=== PATIENT | female | born 1935 | race African-American/Black ===

== ENCOUNTER 2020-07-02 13:54 | Inpatient (IN) ==
[2020-07-02] MEDS ORDERED: ENOXAPARIN 100 MG/ML SYRINGE SUBCUT STA (14:34)
[2020-07-02] MEDS ORDERED: ASPIRIN 325 MG TABLET PO STA (14:34)
[2020-07-02 14:42] LABS: Hematocrit 23.2 VOL% (35.7-47.0); Hemoglobin 7.4 GM/DL (12.0-16.0); Immature Granulocytes % 1.1 %; Immature Granulocytes Absolute 0.25 #; Lymphocytes # 1.7 10*3/uL (1.4-4.0); Lymphocytes % 7.3 % (21.3-54.2); Mean Corpuscular HGB Conc 31.9 GM/DL (32-36); Mean Corpuscular Volume 91.7 FL (87-102); Mean Platelet Volume 10.6 FL (9.6-12.0); Monocytes % 6.2 % (1.7-12.7); NRBC # 0.16 10*3/uL; Neutrophils % 85.4 % (38.7-73.9); Platelet Count 255 T/CUMM (130-400); Red Blood Count 2.53 MC/CUMM (3.8-5.5); Red Cell Distribution Width 16.5 % (9.3-17.3); White Blood Count 22.8 T/CUMM (4-12)
[2020-07-02] MEDS: NITROGLYCERIN SL 0.4 MG TABLET SL PRN (14:51)
[2020-07-02 14:55] LABS: Alanine Aminotransferase 18 U/L (13-56); Albumin 3.7 G/DL (3.4-5.0); Alkaline Phosphatase 94 U/L (45-117); Aspartate Amino Transferase 40 U/L (0-37); Bilirubin,Total < 0.39 MG/DL (0.2-1.0); Blood Urea Nitrogen 118 MG/DL (7-18); Calcium 9.1 MG/DL (8.5-10.1); Carbon Dioxide 24 MMOL/L (21-32); Estimated Glom Filtration Rate 25 ML/MIN; Glucose 112 MG/DL (74-106); Osmolality,Calculated 330.4 MOS/KG (273-304); Potassium 3.8 MMOL/L (3.5-5.1); Sodium 147 MMOL/L (136-145); Total Protein 7.3 G/DL (6.4-8.2)
[2020-07-02 15:03] LABS: Hypochromasia 1+; Lymphocytes 13 % (20-55); Microcytosis 1+; Segmented Neutrophils 82 % (50-85); Total Cells Counted 100
[2020-07-02 15:04] LABS: Platelet Estimate Adequate
[2020-07-02] MEDS ORDERED: SODIUM CHLORIDE 0.9% 1,000 ML IV STA (15:14)
[2020-07-02] MEDS ORDERED: SODIUM CHLORIDE 0.9% 1,000 ML IV PRN (15:15)
[2020-07-02] MEDS ORDERED: DEXTROSE 50% 25 GM/50 ML VIAL IV PRN (15:59)
[2020-07-02] MEDS ORDERED: GLUCAGON 1 MG VIAL IM PRN (15:59)
[2020-07-02] MEDS ORDERED: ONDANSETRON 4 MG/2 ML VIAL IV PRN (15:59)
[2020-07-02 16:37] LABS: Bacteria,Urine Many /HPF (Few); Bilirubin,Urine Negative (Negative); Blood, Urine Negative (Negative); Glucose,Urine (UA) Negative (Negative); Hyaline Casts,Urine 14 /LPF (0-3); Ketones,Urine Negative (Negative); Mucus,Urine Occasional /LPF (Occasional); Nitrite,Urine Negative (Negative); Protein,Urine Negative; Squamous Epithelial Cell,Urine Occasional /HPF (0-10); Urine Appearance Slightly Hazy (Clear); Urine Color Yellow (Yellow); Urine Specific Gravity 1.014 (1.001-1.035); Urine Urobilinogen < 2.0 EU/DL (0.2-1.0)
[2020-07-02 17:52] LABS: Hematocrit 21.1 VOL% (35.7-47.0); Hemoglobin 6.7 GM/DL (12.0-16.0)
[2020-07-02] MEDS: cefTRIAXone 1,000 MG in SODIUM CHLORIDE 0.9% 100 ML IV SCH (17:57)
[2020-07-02] MEDS: PANTOPRAZOLE 40 MG TABLET PO SCH (17:57)
[2020-07-02] MEDS: SODIUM CHLORIDE 0.9% 1,000 ML IV SCH (17:58)
[2020-07-02] MEDS: LATANOPROST 0.005% OPH SOLN 2.5 ML BOTTLE BOTH EYES SCH (20:55)
[2020-07-02] MEDS: NORTRIPTYLINE 25 MG CAPSULE PO SCH (20:55)
[2020-07-02] MEDS: GABAPENTIN 100 MG CAPSULE PO SCH (20:55)
[2020-07-02] MEDS: DONEPEZIL 10 MG TABLET PO SCH (20:55)
[2020-07-02 22:10] LABS: Hemoglobin 6.3 GM/DL (12.0-16.0)
[2020-07-03] MEDS: SODIUM CHLORIDE 0.9% 1,000 ML IV SCH ×2 (06:53→08:43)
[2020-07-03] MEDS: SERTRALINE 50 MG TABLET PO SCH (08:44)
[2020-07-03] MEDS: GABAPENTIN 100 MG CAPSULE PO SCH ×3 (08:45→21:47)
[2020-07-03] MEDS: PANTOPRAZOLE 40 MG TABLET PO SCH (08:45)
[2020-07-03 10:14] LABS: Basophils % 0.1 % (0.0-0.8); Hematocrit 28.8 VOL% (35.7-47.0); Immature Granulocytes % 0.8 %; Immature Granulocytes Absolute 0.12 #; Lymphocytes # 1.6 10*3/uL (1.4-4.0); Lymphocytes % 11.4 % (21.3-54.2); Mean Corpuscular HGB Conc 33.7 GM/DL (32-36); Mean Corpuscular Volume 87.3 FL (87-102); Mean Platelet Volume 10.2 FL (9.6-12.0); Monocytes % 8.8 % (1.7-12.7); NRBC # 0.25 10*3/uL; Neutrophils % 78.9 % (38.7-73.9); Red Cell Distribution Width 15.7 % (9.3-17.3)
[2020-07-03 10:15] LABS: White Blood Count 14.2 T/CUMM (4-12)
[2020-07-03 10:16] LABS: Hemoglobin 9.7 GM/DL (12.0-16.0); Platelet Count 203 T/CUMM (130-400)
[2020-07-03 10:20] LABS: INR 1.1; PT Patient Result 12.5 SECS (9.8-11.9)
[2020-07-03 10:34] LABS: Albumin 3.2 G/DL (3.4-5.0); Bilirubin,Total 0.4 MG/DL (0.2-1.0); Calcium 8.6 MG/DL (8.5-10.1); Osmolality,Calculated 329.6 MOS/KG (273-304); Potassium 3.3 MMOL/L (3.5-5.1); Total Protein 6.9 G/DL (6.4-8.2)
[2020-07-03] MEDS: PANTOPRAZOLE 40 MG VIAL IV SCH ×2 (11:28→21:47)
[2020-07-03] MEDS: POTASSIUM CHLORIDE RIDER 10 MEQ in PREMIX 1 EACH IV SCH ×4 (11:28→15:09)
[2020-07-03] MEDS: MORPHINE 4 MG/1 ML VIAL IV PRN (11:30)
[2020-07-03 14:58] LABS: CKMB % 1.6 %
[2020-07-03 15:03] LABS: Troponin I 0.084 NG/ML (0.00-0.045)
[2020-07-03] MEDS: METOPROLOL TARTRATE 25 MG TABLET PO SCH ×2 (15:12→21:47)
[2020-07-03] MEDS: ISOSORBIDE MONONITRATE 30 MG TABLET PO SCH (15:17)
[2020-07-03] MEDS: DEXTROSE 5% 1,000 ML IV SCH (15:19)
[2020-07-03] MEDS: cefTRIAXone 1,000 MG in SODIUM CHLORIDE 0.9% 100 ML IV SCH (17:45)
[2020-07-03] MEDS: DONEPEZIL 10 MG TABLET PO SCH (21:47)
[2020-07-03] MEDS: NORTRIPTYLINE 25 MG CAPSULE PO SCH (21:47)
[2020-07-03] MEDS: LATANOPROST 0.005% OPH SOLN 2.5 ML BOTTLE BOTH EYES SCH (23:27)
[2020-07-04 05:22] LABS: Basophils % 0.2 % (0.0-0.8); Eosinophils % 0.2 % (0.00-10.9); Hematocrit 25.6 VOL% (35.7-47.0); Hemoglobin 8.2 GM/DL (12.0-16.0); Immature Granulocytes % 0.4 %; Immature Granulocytes Absolute 0.04 #; Lymphocytes # 1.8 10*3/uL (1.4-4.0); Lymphocytes % 19.1 % (21.3-54.2); Mean Corpuscular Volume 91.4 FL (87-102); Mean Platelet Volume 10.2 FL (9.6-12.0); Monocytes % 10.2 % (1.7-12.7); NRBC # 0.19 10*3/uL; Neutrophils % 69.9 % (38.7-73.9); Platelet Count 188 T/CUMM (130-400); Red Cell Distribution Width 16.9 % (9.3-17.3); White Blood Count 9.6 T/CUMM (4-12)
[2020-07-04 05:32] LABS: INR 1.1; PT Patient Result 12.6 SECS (9.8-11.9)
[2020-07-04 05:48] LABS: Troponin I 0.053 NG/ML (0.00-0.045)
[2020-07-04 05:52] LABS: Albumin 2.7 G/DL (3.4-5.0); Bilirubin,Total 0.4 MG/DL (0.2-1.0); Calcium 8.3 MG/DL (8.5-10.1); Osmolality,Calculated 304.4 MOS/KG (273-304); Potassium 3.8 MMOL/L (3.5-5.1); Total Protein 5.7 G/DL (6.4-8.2)
[2020-07-04] MEDS: PANTOPRAZOLE 40 MG VIAL IV SCH ×2 (08:58→20:23)
[2020-07-04] MEDS: ISOSORBIDE MONONITRATE 30 MG TABLET PO SCH (08:59)
[2020-07-04] MEDS: METOPROLOL TARTRATE 25 MG TABLET PO SCH ×2 (08:59→20:22)
[2020-07-04] MEDS: GABAPENTIN 100 MG CAPSULE PO SCH ×3 (08:59→20:22)
[2020-07-04] MEDS: SERTRALINE 50 MG TABLET PO SCH (08:59)
[2020-07-04] MEDS ORDERED: MECLIZINE 12.5 MG TABLET PO PRN (10:41)
[2020-07-04] MEDS: LACTATED RINGERS 1,000 ML IV SCH (12:35)
[2020-07-04] MEDS ORDERED: ETOMIDATE 20 MG/10 ML VIAL IV ONE (12:37)
[2020-07-04] MEDS ORDERED: LIDOCAINE 2% 5 ML VIAL ONE (12:37)
[2020-07-04] MEDS: DEXTROSE 5% 1,000 ML IV SCH (15:05)
[2020-07-04] MEDS: cefTRIAXone 1,000 MG in SODIUM CHLORIDE 0.9% 100 ML IV SCH (17:29)
[2020-07-04] MEDS: NORTRIPTYLINE 25 MG CAPSULE PO SCH (20:22)
[2020-07-04] MEDS: DONEPEZIL 10 MG TABLET PO SCH (20:22)
[2020-07-04] MEDS: SIMVASTATIN 10 MG TABLET PO SCH (20:22)
[2020-07-04] MEDS: LATANOPROST 0.005% OPH SOLN 2.5 ML BOTTLE BOTH EYES SCH (21:56)
[2020-07-05 06:24] LABS: Basophils % 0.2 % (0.0-0.8); Eosinophils # 0.2 10*3/uL (0.0-0.87); Eosinophils % 2.1 % (0.00-10.9); Hematocrit 26.8 VOL% (35.7-47.0); Hemoglobin 8.4 GM/DL (12.0-16.0); Immature Granulocytes % 0.6 %; Immature Granulocytes Absolute 0.06 #; Lymphocytes # 1.9 10*3/uL (1.4-4.0); Lymphocytes % 18.5 % (21.3-54.2); Mean Corpuscular HGB Conc 31.3 GM/DL (32-36); Mean Corpuscular Volume 91.8 FL (87-102); Mean Platelet Volume 10.2 FL (9.6-12.0); Monocytes % 10.9 % (1.7-12.7); NRBC # 0.07 10*3/uL; Neutrophils % 67.7 % (38.7-73.9); Platelet Count 199 T/CUMM (130-400); Red Blood Count 2.92 MC/CUMM (3.8-5.5); Red Cell Distribution Width 16.7 % (9.3-17.3); White Blood Count 10.3 T/CUMM (4-12)
[2020-07-05 06:36] LABS: Calcium 7.9 MG/DL (8.5-10.1); Osmolality,Calculated 289.8 MOS/KG (273-304); Potassium 3.5 MMOL/L (3.5-5.1)
[2020-07-05] MEDS: ISOSORBIDE MONONITRATE 30 MG TABLET PO SCH (09:01)
[2020-07-05] MEDS: GABAPENTIN 100 MG CAPSULE PO SCH ×3 (09:01→20:30)
[2020-07-05] MEDS: PANTOPRAZOLE 40 MG VIAL IV SCH (09:02)
[2020-07-05] MEDS: SERTRALINE 50 MG TABLET PO SCH (09:02)
[2020-07-05] MEDS: METOPROLOL TARTRATE 25 MG TABLET PO SCH ×2 (09:02→20:57)
[2020-07-05] MEDS: DEXTROSE 5% 1,000 ML IV SCH (11:35)
[2020-07-05] MEDS ORDERED: MAGNESIUM HYDROXIDE SUSP 30 ML UDCUP PO ONE (13:45)
[2020-07-05] MEDS: cefTRIAXone 1,000 MG in SODIUM CHLORIDE 0.9% 100 ML IV SCH (17:51)
[2020-07-05] MEDS: PANTOPRAZOLE 40 MG TABLET PO SCH (17:53)
[2020-07-05] MEDS: LATANOPROST 0.005% OPH SOLN 2.5 ML BOTTLE BOTH EYES SCH (20:29)
[2020-07-05] MEDS: SIMVASTATIN 10 MG TABLET PO SCH (20:30)
[2020-07-05] MEDS: NORTRIPTYLINE 25 MG CAPSULE PO SCH (20:30)
[2020-07-05] MEDS: DONEPEZIL 10 MG TABLET PO SCH (20:57)
[2020-07-06 06:03] LABS: Basophils % 0.1 % (0.0-0.8); Eosinophils # 0.3 10*3/uL (0.0-0.87); Eosinophils % 2.5 % (0.00-10.9); Hemoglobin 8.5 GM/DL (12.0-16.0); Immature Granulocytes % 0.8 %; Immature Granulocytes Absolute 0.09 #; Lymphocytes # 1.4 10*3/uL (1.4-4.0); Lymphocytes % 12.6 % (21.3-54.2); Mean Corpuscular HGB Conc 32.7 GM/DL (32-36); Mean Corpuscular Volume 89.7 FL (87-102); Mean Platelet Volume 9.3 FL (9.6-12.0); NRBC # 0.02 10*3/uL; Platelet Count 187 T/CUMM (130-400); Red Cell Distribution Width 16.2 % (9.3-17.3); White Blood Count 10.9 T/CUMM (4-12)
[2020-07-06] MEDS: PANTOPRAZOLE 40 MG TABLET PO SCH ×2 (06:05→17:47)
[2020-07-06 06:30] LABS: % Iron Saturation 4.1 % (18-50); Ferritin 28.6 ng/ml (8-252)
[2020-07-06 06:33] LABS: Folate 3.17 NG/ML (5.38-24.0); Vitamin B12 687 PG/ML (211-911)
[2020-07-06 07:09] LABS: Sedimentation Rate-Westergren 47 MM/HR (0-30)
[2020-07-06] MEDS: ISOSORBIDE MONONITRATE 30 MG TABLET PO SCH (08:48)
[2020-07-06] MEDS: METOPROLOL TARTRATE 25 MG TABLET PO SCH ×2 (08:48→20:52)
[2020-07-06] MEDS: GABAPENTIN 100 MG CAPSULE PO SCH ×3 (08:48→20:48)
[2020-07-06] MEDS: SERTRALINE 50 MG TABLET PO SCH (08:48)
[2020-07-06] MEDS: DEXTROSE 5% 1,000 ML IV SCH (08:53)
[2020-07-06] MEDS: MORPHINE 4 MG/1 ML VIAL IV PRN (12:41)
[2020-07-06] MEDS: NITROGLYCERIN SL 0.4 MG TABLET SL PRN (12:48)
[2020-07-06] MEDS: cefTRIAXone 1,000 MG in SODIUM CHLORIDE 0.9% 100 ML IV SCH (17:47)
[2020-07-06] MEDS: DONEPEZIL 10 MG TABLET PO SCH (20:48)
[2020-07-06] MEDS: NORTRIPTYLINE 25 MG CAPSULE PO SCH (20:48)
[2020-07-06] MEDS: SIMVASTATIN 10 MG TABLET PO SCH (20:49)
[2020-07-06] MEDS: LATANOPROST 0.005% OPH SOLN 2.5 ML BOTTLE BOTH EYES SCH (20:51)
[2020-07-07] MEDS: ACETAMINOPHEN 325 MG TABLET PO PRN ×3 (00:33→15:23)
[2020-07-07 05:07] LABS: Hematocrit 25.9 VOL% (35.7-47.0); Hemoglobin 8.5 GM/DL (12.0-16.0)
[2020-07-07 05:26] LABS: Albumin 2.4 G/DL (3.4-5.0); Bilirubin,Total 0.4 MG/DL (0.2-1.0); Calcium 7.9 MG/DL (8.5-10.1); Osmolality,Calculated 277.4 MOS/KG (273-304); Potassium 3.4 MMOL/L (3.5-5.1); Total Protein 5.9 G/DL (6.4-8.2)
[2020-07-07] MEDS: DEXTROSE 5% 1,000 ML IV SCH (05:38)
[2020-07-07] MEDS: PANTOPRAZOLE 40 MG TABLET PO SCH ×2 (06:02→18:29)
[2020-07-07] MEDS: LACTATED RINGERS 1,000 ML IV SCH ×2 (07:02→07:03)
[2020-07-07] MEDS ORDERED: POTASSIUM CHLORIDE RIDER 10 MEQ in PREMIX 1 EACH IV PRN (07:04)
[2020-07-07] MEDS: FOLIC ACID 1 MG TABLET PO SCH (08:33)
[2020-07-07] MEDS: SERTRALINE 50 MG TABLET PO SCH (08:33)
[2020-07-07] MEDS: FERROUS SULFATE 325 MG TABLET PO SCH (08:33)
[2020-07-07] MEDS: POTASSIUM CHLORIDE 20 MEQ TABLET PO PRN ×3 (08:33→13:52)
[2020-07-07] MEDS: GABAPENTIN 100 MG CAPSULE PO SCH ×3 (08:33→20:04)
[2020-07-07] MEDS: METOPROLOL TARTRATE 25 MG TABLET PO SCH (08:33)
[2020-07-07] MEDS: ISOSORBIDE MONONITRATE 30 MG TABLET PO SCH (08:34)
[2020-07-07] MEDS ORDERED: traMADol 50 MG TABLET PO PRN (10:17)
[2020-07-07] MEDS: SIMVASTATIN 10 MG TABLET PO SCH (20:03)
[2020-07-07] MEDS: NORTRIPTYLINE 25 MG CAPSULE PO SCH (20:03)
[2020-07-07] MEDS: DONEPEZIL 10 MG TABLET PO SCH (20:04)
[2020-07-07] MEDS: LATANOPROST 0.005% OPH SOLN 2.5 ML BOTTLE BOTH EYES SCH (20:05)
[2020-07-07] MEDS ORDERED: VERAPAMIL 80 MG TABLET PO SCH (21:00)
[2020-07-08] MEDS: ACETAMINOPHEN 325 MG TABLET PO PRN ×2 (01:00→15:39)
[2020-07-08] MEDS: DEXTROSE 5% 1,000 ML IV SCH (01:38)
[2020-07-08] MEDS: PANTOPRAZOLE 40 MG TABLET PO SCH (05:16)
[2020-07-08 06:05] LABS: Hematocrit 24.3 VOL% (35.7-47.0)
[2020-07-08 06:33] LABS: Albumin 2.1 G/DL (3.4-5.0); Bilirubin,Total 0.4 MG/DL (0.2-1.0); Osmolality,Calculated 282.1 MOS/KG (273-304); Potassium 4.1 MMOL/L (3.5-5.1); Total Protein 5.6 G/DL (6.4-8.2)
[2020-07-08 08:57] LABS: Hemoglobin A1 (Alkaline) 97.9 % (96.5-98.5); Hemoglobin A2 (Alkaline) 2.1 % (1.5-3.5)
[2020-07-08] MEDS: FERROUS SULFATE 325 MG TABLET PO SCH (09:53)
[2020-07-08] MEDS: FOLIC ACID 1 MG TABLET PO SCH (09:53)
[2020-07-08] MEDS: SERTRALINE 50 MG TABLET PO SCH (09:53)
[2020-07-08] MEDS: GABAPENTIN 100 MG CAPSULE PO SCH ×2 (09:53→15:39)
[2020-07-08] MEDS: ISOSORBIDE MONONITRATE 30 MG TABLET PO SCH (09:58)
[2020-07-08] MEDS ORDERED: SODIUM CHLORIDE 0.9% 250 ML IV ONE (10:21)
[2020-07-08 12:03] VITALS: BP 101/58
== END 2020-07-08 15:42 | disposition home health service (06) | DRG 378 ==
LOC: N.ED 13:54 → N.EDINP 15:57 → SUATTDRO 15:57 → N.4E 17:00
PROVIDERS: ADMIT Internal Medicine; ATTEND Internal Medicine

== ENCOUNTER 2020-08-09 12:36 | Inpatient (IN) ==
[2020-08-09 13:31] LABS: Basophils # 0.1 10*3/uL (0.0-0.2); Basophils % 0.5 % (0.0-0.8); Eosinophils # 0.2 10*3/uL (0.0-0.87); Eosinophils % 1.5 % (0.00-10.9); Hemoglobin 8.7 GM/DL (12.0-16.0); Immature Granulocytes % 0.5 %; Immature Granulocytes Absolute 0.05 #; Lymphocytes # 1.5 10*3/uL (1.4-4.0); Lymphocytes % 14.8 % (21.3-54.2); Mean Corpuscular HGB Conc 31.1 GM/DL (32-36); Mean Corpuscular Volume 86.4 FL (87-102); Mean Platelet Volume 8.5 FL (9.6-12.0); Monocytes % 7.6 % (1.7-12.7); Neutrophils % 75.1 % (38.7-73.9); Platelet Count 428 T/CUMM (130-400); Red Blood Count 3.24 MC/CUMM (3.8-5.5); Red Cell Distribution Width 16.6 % (9.3-17.3); White Blood Count 9.9 T/CUMM (4-12)
[2020-08-09 13:41] LABS: INR 1.1; PT Patient Result 12.4 SECS (10.5-12.0)
[2020-08-09] MEDS ORDERED: PANTOPRAZOLE 40 MG VIAL IV STA (13:49)
[2020-08-09] MEDS ORDERED: SODIUM CHLORIDE 0.9% 1,000 ML IV STA (13:49)
[2020-08-09] MEDS ORDERED: ONDANSETRON 4 MG/2 ML VIAL IV STA (13:49)
[2020-08-09 13:50] LABS: Albumin 2.4 G/DL (3.4-5.0); Bilirubin,Total 0.6 MG/DL (0.2-1.0); Calcium 8.6 MG/DL (8.5-10.1); Osmolality,Calculated 287.3 MOS/KG (273-304); Total Protein 7.9 G/DL (6.4-8.2)
[2020-08-09] MEDS ORDERED: GLUCAGON 1 MG VIAL IM PRN (15:21)
[2020-08-09] MEDS ORDERED: ONDANSETRON 4 MG/2 ML VIAL IV PRN (15:21)
[2020-08-09] MEDS ORDERED: DEXTROSE 50% 25 GM/50 ML VIAL IV PRN (15:21)
[2020-08-09] MEDS ORDERED: MECLIZINE 12.5 MG TABLET PO PRN (15:28)
[2020-08-09] MEDS: DEXT 5% NACL 0.45% KCL 20 MEQ 20 MEQ/1,000 ML BAG IV SCH (17:39)
[2020-08-09] MEDS: GABAPENTIN 100 MG CAPSULE PO SCH (20:29)
[2020-08-09] MEDS: LATANOPROST 0.005% OPH SOLN 2.5 ML BOTTLE BOTH EYES SCH (20:29)
[2020-08-09] MEDS: NORTRIPTYLINE 25 MG CAPSULE PO SCH (20:29)
[2020-08-09] MEDS: ACETAMINOPHEN 325 MG TABLET PO PRN (20:30)
[2020-08-09] MEDS: PANTOPRAZOLE 40 MG VIAL IV SCH (20:31)
[2020-08-10 06:18] LABS: Basophils # 0.1 10*3/uL (0.0-0.2); Basophils % 0.6 % (0.0-0.8); Eosinophils # 0.3 10*3/uL (0.0-0.87); Eosinophils % 3.9 % (0.00-10.9); Hematocrit 25.4 VOL% (35.7-47.0); Hemoglobin 7.8 GM/DL (12.0-16.0); Immature Granulocytes % 0.5 %; Immature Granulocytes Absolute 0.04 #; Lymphocytes # 1.3 10*3/uL (1.4-4.0); Mean Corpuscular HGB Conc 30.7 GM/DL (32-36); Mean Corpuscular Volume 87.3 FL (87-102); Monocytes % 9.3 % (1.7-12.7); Neutrophils % 68.7 % (38.7-73.9); Platelet Count 410 T/CUMM (130-400); Red Blood Count 2.91 MC/CUMM (3.8-5.5); Red Cell Distribution Width 16.8 % (9.3-17.3); White Blood Count 7.9 T/CUMM (4-12)
[2020-08-10 06:47] LABS: Calcium 8.1 MG/DL (8.5-10.1); Potassium 3.2 MMOL/L (3.5-5.1)
[2020-08-10] MEDS ORDERED: POTASSIUM CHLORIDE 20 MEQ TABLET PO ONE (07:41)
[2020-08-10] MEDS: SERTRALINE 50 MG TABLET PO SCH (09:05)
[2020-08-10] MEDS: FOLIC ACID 1 MG TABLET PO SCH (09:05)
[2020-08-10] MEDS: GABAPENTIN 100 MG CAPSULE PO SCH ×3 (09:05→20:41)
[2020-08-10] MEDS: PANTOPRAZOLE 40 MG VIAL IV SCH ×2 (09:06→20:44)
[2020-08-10] MEDS: ISOSORBIDE MONONITRATE 30 MG TABLET PO SCH (09:58)
[2020-08-10] MEDS: NORTRIPTYLINE 25 MG CAPSULE PO SCH (20:41)
[2020-08-10] MEDS: ACETAMINOPHEN 325 MG TABLET PO PRN (20:41)
[2020-08-10] MEDS: SIMVASTATIN 10 MG TABLET PO SCH (20:41)
[2020-08-10] MEDS: DONEPEZIL 10 MG TABLET PO SCH (20:41)
[2020-08-10] MEDS: LATANOPROST 0.005% OPH SOLN 2.5 ML BOTTLE BOTH EYES SCH (20:42)
[2020-08-11] MEDS: DEXT 5% NACL 0.45% KCL 20 MEQ 20 MEQ/1,000 ML BAG IV SCH ×2 (00:09→14:31)
[2020-08-11 06:29] LABS: Basophils % 0.4 % (0.0-0.8); Eosinophils # 0.3 10*3/uL (0.0-0.87); Eosinophils % 3.3 % (0.00-10.9); Hematocrit 27.4 VOL% (35.7-47.0); Hemoglobin 8.4 GM/DL (12.0-16.0); Immature Granulocytes % 0.5 %; Immature Granulocytes Absolute 0.04 #; Lymphocytes # 1.5 10*3/uL (1.4-4.0); Lymphocytes % 18.6 % (21.3-54.2); Mean Corpuscular HGB Conc 30.7 GM/DL (32-36); Mean Corpuscular Volume 88.1 FL (87-102); Monocytes % 8.5 % (1.7-12.7); Neutrophils % 68.7 % (38.7-73.9); Platelet Count 444 T/CUMM (130-400); Red Blood Count 3.11 MC/CUMM (3.8-5.5); Red Cell Distribution Width 16.8 % (9.3-17.3); White Blood Count 7.9 T/CUMM (4-12)
[2020-08-11 06:44] LABS: Calcium 8.2 MG/DL (8.5-10.1); Osmolality,Calculated 278.3 MOS/KG (273-304); Potassium 3.3 MMOL/L (3.5-5.1)
[2020-08-11] MEDS: ISOSORBIDE MONONITRATE 30 MG TABLET PO SCH (08:50)
[2020-08-11] MEDS: FOLIC ACID 1 MG TABLET PO SCH (08:51)
[2020-08-11] MEDS: GABAPENTIN 100 MG CAPSULE PO SCH ×3 (08:51→20:27)
[2020-08-11] MEDS: SERTRALINE 50 MG TABLET PO SCH (08:52)
[2020-08-11] MEDS: PANTOPRAZOLE 40 MG VIAL IV SCH ×2 (08:54→20:29)
[2020-08-11 12:18] LABS: Hematocrit 27.5 VOL% (35.7-47.0); Hemoglobin 8.4 GM/DL (12.0-16.0)
[2020-08-11 18:56] LABS: Hematocrit 27.4 VOL% (35.7-47.0); Hemoglobin 8.5 GM/DL (12.0-16.0)
[2020-08-11] MEDS: SIMVASTATIN 10 MG TABLET PO SCH (20:27)
[2020-08-11] MEDS: DONEPEZIL 10 MG TABLET PO SCH (20:28)
[2020-08-11] MEDS: NORTRIPTYLINE 25 MG CAPSULE PO SCH (20:28)
[2020-08-11] MEDS: ACETAMINOPHEN 325 MG TABLET PO PRN (20:29)
[2020-08-11] MEDS: LATANOPROST 0.005% OPH SOLN 2.5 ML BOTTLE BOTH EYES SCH (20:32)
[2020-08-12] MEDS: ACETAMINOPHEN 325 MG TABLET PO PRN ×2 (02:51→08:34)
[2020-08-12 03:11] LABS: Calcium 8.2 MG/DL (8.5-10.1); Osmolality,Calculated 275.5 MOS/KG (273-304); Potassium 3.5 MMOL/L (3.5-5.1)
[2020-08-12 03:14] LABS: Basophils % 0.5 % (0.0-0.8); Eosinophils # 0.3 10*3/uL (0.0-0.87); Eosinophils % 3.4 % (0.00-10.9); Hematocrit 25.9 VOL% (35.7-47.0); Hemoglobin 7.9 GM/DL (12.0-16.0); Immature Granulocytes % 0.7 %; Immature Granulocytes Absolute 0.06 #; Lymphocytes # 1.5 10*3/uL (1.4-4.0); Lymphocytes % 18.3 % (21.3-54.2); Mean Corpuscular HGB Conc 30.5 GM/DL (32-36); Mean Corpuscular Volume 86.9 FL (87-102); Mean Platelet Volume 8.8 FL (9.6-12.0); Monocytes % 8.6 % (1.7-12.7); Neutrophils % 68.5 % (38.7-73.9); Platelet Count 412 T/CUMM (130-400); Red Blood Count 2.98 MC/CUMM (3.8-5.5); Red Cell Distribution Width 16.6 % (9.3-17.3)
[2020-08-12 08:22] LABS: Hematocrit 27.5 VOL% (35.7-47.0); Hemoglobin 8.4 GM/DL (12.0-16.0)
[2020-08-12] MEDS: PANTOPRAZOLE 40 MG VIAL IV SCH ×2 (08:34→20:35)
[2020-08-12] MEDS: SERTRALINE 50 MG TABLET PO SCH (08:34)
[2020-08-12] MEDS: GABAPENTIN 100 MG CAPSULE PO SCH ×3 (08:34→20:35)
[2020-08-12] MEDS: ISOSORBIDE MONONITRATE 30 MG TABLET PO SCH (08:34)
[2020-08-12] MEDS: FOLIC ACID 1 MG TABLET PO SCH (08:34)
[2020-08-12] MEDS: DEXT 5% NACL 0.45% KCL 20 MEQ 20 MEQ/1,000 ML BAG IV SCH ×2 (09:31→12:00)
[2020-08-12] MEDS: CYCLOBENZAPRINE 10 MG TABLET PO SCH ×2 (11:57→20:35)
[2020-08-12] MEDS ORDERED: MAGNESIUM SULF RIDER 2 GM/50 ML PREMIX IV ONE (13:30)
[2020-08-12] MEDS: ZINC OXIDE PASTE 113 GM TUBE TOP SCH ×2 (16:16→20:36)
[2020-08-12] MEDS ORDERED: TUBERCULIN SKIN TEST 0.1 ML SYRINGE INTRADERM ONE (17:18)
[2020-08-12] MEDS ORDERED: MAGNESIUM CITRATE 300 ML BOTTLE PO ONE (18:00)
[2020-08-12 18:39] LABS: Hematocrit 28.9 VOL% (35.7-47.0); Hemoglobin 8.9 GM/DL (12.0-16.0)
[2020-08-12] MEDS: NORTRIPTYLINE 25 MG CAPSULE PO SCH (20:35)
[2020-08-12] MEDS: SIMVASTATIN 10 MG TABLET PO SCH (20:36)
[2020-08-12] MEDS: DONEPEZIL 10 MG TABLET PO SCH (20:36)
[2020-08-12] MEDS: LATANOPROST 0.005% OPH SOLN 2.5 ML BOTTLE BOTH EYES SCH (20:36)
[2020-08-13 05:21] LABS: Basophils % 0.4 % (0.0-0.8); Eosinophils # 0.2 10*3/uL (0.0-0.87); Eosinophils % 2.1 % (0.00-10.9); Hematocrit 29.3 VOL% (35.7-47.0); Hemoglobin 9.4 GM/DL (12.0-16.0); Immature Granulocytes % 0.4 %; Immature Granulocytes Absolute 0.05 #; Lymphocytes # 1.7 10*3/uL (1.4-4.0); Lymphocytes % 15.3 % (21.3-54.2); Mean Corpuscular HGB Conc 32.1 GM/DL (32-36); Mean Corpuscular Volume 84.7 FL (87-102); Mean Platelet Volume 8.9 FL (9.6-12.0); Monocytes % 6.2 % (1.7-12.7); Neutrophils % 75.6 % (38.7-73.9); Platelet Count 463 T/CUMM (130-400); Red Blood Count 3.46 MC/CUMM (3.8-5.5); Red Cell Distribution Width 16.5 % (9.3-17.3); White Blood Count 11.2 T/CUMM (4-12)
[2020-08-13] MEDS: DEXT 5% NACL 0.45% KCL 20 MEQ 20 MEQ/1,000 ML BAG IV SCH ×3 (05:23→18:37)
[2020-08-13 05:33] LABS: Calcium 8.7 MG/DL (8.5-10.1); Osmolality,Calculated 274.4 MOS/KG (273-304); Potassium 3.3 MMOL/L (3.5-5.1)
[2020-08-13] MEDS: FOLIC ACID 1 MG TABLET PO SCH (09:43)
[2020-08-13] MEDS: CYCLOBENZAPRINE 10 MG TABLET PO SCH ×2 (09:43→21:32)
[2020-08-13] MEDS: SERTRALINE 50 MG TABLET PO SCH (09:44)
[2020-08-13] MEDS: ISOSORBIDE MONONITRATE 30 MG TABLET PO SCH (09:44)
[2020-08-13] MEDS: GABAPENTIN 100 MG CAPSULE PO SCH ×3 (09:44→21:31)
[2020-08-13] MEDS: PANTOPRAZOLE 40 MG VIAL IV SCH ×2 (09:59→21:32)
[2020-08-13] MEDS: ZINC OXIDE PASTE 113 GM TUBE TOP SCH ×2 (09:59→21:32)
[2020-08-13] MEDS: POTASSIUM CHLORIDE RIDER 10 MEQ/100 ML PREMIX IV PRN ×4 (16:53→23:46)
[2020-08-13 19:33] LABS: Hematocrit 28.8 VOL% (35.7-47.0)
[2020-08-13] MEDS: SIMVASTATIN 10 MG TABLET PO SCH (21:31)
[2020-08-13] MEDS: NORTRIPTYLINE 25 MG CAPSULE PO SCH (21:32)
[2020-08-13] MEDS: DONEPEZIL 10 MG TABLET PO SCH (21:32)
[2020-08-13] MEDS: LATANOPROST 0.005% OPH SOLN 2.5 ML BOTTLE BOTH EYES SCH (21:33)
[2020-08-14 05:48] LABS: Basophils # 0.1 10*3/uL (0.0-0.2); Basophils % 0.6 % (0.0-0.8); Eosinophils # 0.3 10*3/uL (0.0-0.87); Eosinophils % 3.4 % (0.00-10.9); Hematocrit 27.6 VOL% (35.7-47.0); Hemoglobin 8.7 GM/DL (12.0-16.0); Immature Granulocytes % 0.3 %; Immature Granulocytes Absolute 0.03 #; Lymphocytes # 1.4 10*3/uL (1.4-4.0); Lymphocytes % 15.3 % (21.3-54.2); Mean Corpuscular HGB Conc 31.5 GM/DL (32-36); Mean Corpuscular Volume 84.9 FL (87-102); Monocytes % 8.9 % (1.7-12.7); Neutrophils % 71.5 % (38.7-73.9); Platelet Count 435 T/CUMM (130-400); Red Blood Count 3.25 MC/CUMM (3.8-5.5); Red Cell Distribution Width 16.5 % (9.3-17.3); White Blood Count 8.8 T/CUMM (4-12)
[2020-08-14 06:20] LABS: Calcium 8.5 MG/DL (8.5-10.1); Osmolality,Calculated 268.8 MOS/KG (273-304); Potassium 4.3 MMOL/L (3.5-5.1)
[2020-08-14] MEDS: ZINC OXIDE PASTE 113 GM TUBE TOP SCH ×2 (09:01→21:35)
[2020-08-14] MEDS: ISOSORBIDE MONONITRATE 30 MG TABLET PO SCH (09:01)
[2020-08-14] MEDS: FOLIC ACID 1 MG TABLET PO SCH (09:01)
[2020-08-14] MEDS: CYCLOBENZAPRINE 10 MG TABLET PO SCH ×2 (09:01→21:28)
[2020-08-14] MEDS: SERTRALINE 50 MG TABLET PO SCH (09:01)
[2020-08-14] MEDS: PANTOPRAZOLE 40 MG VIAL IV SCH ×2 (09:02→21:28)
[2020-08-14] MEDS: GABAPENTIN 100 MG CAPSULE PO SCH ×3 (09:02→21:28)
[2020-08-14] MEDS: DEXT 5% NACL 0.45% KCL 20 MEQ 20 MEQ/1,000 ML BAG IV SCH ×2 (10:20→11:22)
[2020-08-14] MEDS: DONEPEZIL 10 MG TABLET PO SCH (21:28)
[2020-08-14] MEDS: SIMVASTATIN 10 MG TABLET PO SCH (21:28)
[2020-08-14] MEDS: NORTRIPTYLINE 25 MG CAPSULE PO SCH (21:28)
[2020-08-14] MEDS: LATANOPROST 0.005% OPH SOLN 2.5 ML BOTTLE BOTH EYES SCH (21:35)
[2020-08-15] MEDS: DEXT 5% NACL 0.45% KCL 20 MEQ 20 MEQ/1,000 ML BAG IV SCH ×3 (02:28→21:12)
[2020-08-15 05:18] LABS: Basophils % 0.4 % (0.0-0.8); Eosinophils # 0.4 10*3/uL (0.0-0.87); Eosinophils % 4.5 % (0.00-10.9); Hematocrit 27.9 VOL% (35.7-47.0); Hemoglobin 8.6 GM/DL (12.0-16.0); Immature Granulocytes % 0.5 %; Immature Granulocytes Absolute 0.05 #; Lymphocytes # 1.6 10*3/uL (1.4-4.0); Lymphocytes % 16.8 % (21.3-54.2); Mean Corpuscular HGB Conc 30.8 GM/DL (32-36); Mean Corpuscular Volume 85.8 FL (87-102); Mean Platelet Volume 8.6 FL (9.6-12.0); Monocytes % 8.8 % (1.7-12.7); Platelet Count 416 T/CUMM (130-400); Red Blood Count 3.25 MC/CUMM (3.8-5.5); Red Cell Distribution Width 16.4 % (9.3-17.3); White Blood Count 9.6 T/CUMM (4-12)
[2020-08-15 05:51] LABS: Calcium 8.6 MG/DL (8.5-10.1); Osmolality,Calculated 276.4 MOS/KG (273-304); Potassium 4.2 MMOL/L (3.5-5.1)
[2020-08-15] MEDS: ISOSORBIDE MONONITRATE 30 MG TABLET PO SCH (08:48)
[2020-08-15] MEDS: PANTOPRAZOLE 40 MG VIAL IV SCH ×2 (08:48→21:12)
[2020-08-15] MEDS: FOLIC ACID 1 MG TABLET PO SCH (08:48)
[2020-08-15] MEDS: CYCLOBENZAPRINE 10 MG TABLET PO SCH (08:48)
[2020-08-15] MEDS: ZINC OXIDE PASTE 113 GM TUBE TOP SCH ×2 (08:48→21:12)
[2020-08-15] MEDS: SERTRALINE 50 MG TABLET PO SCH (08:49)
[2020-08-15] MEDS: GABAPENTIN 100 MG CAPSULE PO SCH ×3 (08:49→21:11)
[2020-08-15] MEDS: NORTRIPTYLINE 25 MG CAPSULE PO SCH (21:10)
[2020-08-15] MEDS: SIMVASTATIN 10 MG TABLET PO SCH (21:11)
[2020-08-15] MEDS: DONEPEZIL 10 MG TABLET PO SCH (21:11)
[2020-08-15] MEDS: LATANOPROST 0.005% OPH SOLN 2.5 ML BOTTLE BOTH EYES SCH (21:12)
[2020-08-16 05:23] LABS: Basophils # 0.1 10*3/uL (0.0-0.2); Basophils % 0.5 % (0.0-0.8); Eosinophils # 0.3 10*3/uL (0.0-0.87); Eosinophils % 3.7 % (0.00-10.9); Hematocrit 25.9 VOL% (35.7-47.0); Hemoglobin 8.2 GM/DL (12.0-16.0); Immature Granulocytes % 0.4 %; Immature Granulocytes Absolute 0.04 #; Lymphocytes # 1.3 10*3/uL (1.4-4.0); Lymphocytes % 14.5 % (21.3-54.2); Mean Corpuscular HGB Conc 31.7 GM/DL (32-36); Mean Corpuscular Volume 84.9 FL (87-102); Mean Platelet Volume 8.6 FL (9.6-12.0); Monocytes % 8.6 % (1.7-12.7); Neutrophils % 72.3 % (38.7-73.9); Platelet Count 376 T/CUMM (130-400); Red Blood Count 3.05 MC/CUMM (3.8-5.5); Red Cell Distribution Width 16.7 % (9.3-17.3); White Blood Count 9.2 T/CUMM (4-12)
[2020-08-16 05:43] LABS: Calcium 8.3 MG/DL (8.5-10.1); Osmolality,Calculated 275.5 MOS/KG (273-304); Potassium 3.9 MMOL/L (3.5-5.1)
[2020-08-16] MEDS ORDERED: LIDOCAINE 2% 5 ML VIAL ONE (11:38)
[2020-08-16] MEDS ORDERED: ETOMIDATE 20 MG/10 ML VIAL IV ONE (11:38)
[2020-08-16] MEDS ORDERED: propofoL 200 MG/20 ML VIAL IV ONE (11:45)
[2020-08-16] MEDS ORDERED: hydrALAZINE 20 MG/1 ML VIAL ONE (11:51)
[2020-08-16] MEDS: GABAPENTIN 100 MG CAPSULE PO SCH ×3 (11:59→21:15)
[2020-08-16] MEDS: PANTOPRAZOLE 40 MG VIAL IV SCH ×2 (12:00→21:16)
[2020-08-16] MEDS: FOLIC ACID 1 MG TABLET PO SCH (12:00)
[2020-08-16] MEDS: SERTRALINE 50 MG TABLET PO SCH (12:00)
[2020-08-16] MEDS: ISOSORBIDE MONONITRATE 30 MG TABLET PO SCH (12:00)
[2020-08-16] MEDS: LACTATED RINGERS 1,000 ML IV SCH (12:38)
[2020-08-16] MEDS: DEXT 5% NACL 0.45% KCL 20 MEQ 20 MEQ/1,000 ML BAG IV SCH (15:14)
[2020-08-16] MEDS ORDERED: MAGNESIUM SULF RIDER 2 GM/50 ML PREMIX IV PRN (15:33)
[2020-08-16] MEDS: ZINC OXIDE PASTE 113 GM TUBE TOP SCH ×2 (15:55→21:16)
[2020-08-16] MEDS: SIMVASTATIN 10 MG TABLET PO SCH (21:15)
[2020-08-16] MEDS: DONEPEZIL 10 MG TABLET PO SCH (21:15)
[2020-08-16] MEDS: NORTRIPTYLINE 25 MG CAPSULE PO SCH (21:15)
[2020-08-16] MEDS: LATANOPROST 0.005% OPH SOLN 2.5 ML BOTTLE BOTH EYES SCH (21:17)
[2020-08-17 06:00] LABS: Basophils % 0.4 % (0.0-0.8); Eosinophils # 0.3 10*3/uL (0.0-0.87); Hematocrit 25.3 VOL% (35.7-47.0); Hemoglobin 8.1 GM/DL (12.0-16.0); Immature Granulocytes % 0.5 %; Immature Granulocytes Absolute 0.04 #; Lymphocytes # 1.3 10*3/uL (1.4-4.0); Lymphocytes % 15.7 % (21.3-54.2); Mean Corpuscular Volume 83.8 FL (87-102); Mean Platelet Volume 8.8 FL (9.6-12.0); Monocytes % 8.4 % (1.7-12.7); Platelet Count 371 T/CUMM (130-400); Red Blood Count 3.02 MC/CUMM (3.8-5.5); Red Cell Distribution Width 16.7 % (9.3-17.3); White Blood Count 8.3 T/CUMM (4-12)
[2020-08-17 06:23] LABS: Calcium 8.3 MG/DL (8.5-10.1); Osmolality,Calculated 275.4 MOS/KG (273-304); Potassium 4.1 MMOL/L (3.5-5.1)
[2020-08-17] MEDS: SERTRALINE 50 MG TABLET PO SCH (09:17)
[2020-08-17] MEDS: ISOSORBIDE MONONITRATE 30 MG TABLET PO SCH (09:17)
[2020-08-17] MEDS: GABAPENTIN 100 MG CAPSULE PO SCH ×3 (09:18→21:56)
[2020-08-17] MEDS: FOLIC ACID 1 MG TABLET PO SCH (09:18)
[2020-08-17] MEDS: PANTOPRAZOLE 40 MG VIAL IV SCH (09:18)
[2020-08-17] MEDS: ZINC OXIDE PASTE 113 GM TUBE TOP SCH ×2 (09:21→21:56)
[2020-08-17] MEDS: LACTATED RINGERS 1,000 ML IV SCH (09:30)
[2020-08-17] MEDS: PANTOPRAZOLE 40 MG TABLET PO SCH (18:15)
[2020-08-17] MEDS: SIMVASTATIN 10 MG TABLET PO SCH (21:55)
[2020-08-17] MEDS: NORTRIPTYLINE 25 MG CAPSULE PO SCH (21:55)
[2020-08-17] MEDS: DONEPEZIL 10 MG TABLET PO SCH (21:55)
[2020-08-17] MEDS: DOCUSATE SODIUM 100 MG CAPSULE PO PRN (21:56)
[2020-08-18] MEDS: DEXT 5% NACL 0.45% KCL 20 MEQ 20 MEQ/1,000 ML BAG IV SCH ×2 (00:11→08:10)
[2020-08-18] MEDS: LATANOPROST 0.005% OPH SOLN 2.5 ML BOTTLE BOTH EYES SCH ×2 (00:46→21:51)
[2020-08-18 04:58] LABS: Basophils % 0.5 % (0.0-0.8); Eosinophils # 0.3 10*3/uL (0.0-0.87); Eosinophils % 4.2 % (0.00-10.9); Hematocrit 25.7 VOL% (35.7-47.0); Immature Granulocytes % 0.4 %; Immature Granulocytes Absolute 0.03 #; Lymphocytes # 1.4 10*3/uL (1.4-4.0); Lymphocytes % 19.3 % (21.3-54.2); Mean Corpuscular HGB Conc 31.1 GM/DL (32-36); Mean Corpuscular Volume 85.7 FL (87-102); Mean Platelet Volume 8.6 FL (9.6-12.0); Neutrophils % 66.6 % (38.7-73.9); Platelet Count 392 T/CUMM (130-400); Red Cell Distribution Width 16.7 % (9.3-17.3); White Blood Count 7.3 T/CUMM (4-12)
[2020-08-18 05:21] LABS: Calcium 8.4 MG/DL (8.5-10.1); Osmolality,Calculated 271.7 MOS/KG (273-304); Potassium 4.5 MMOL/L (3.5-5.1)
[2020-08-18] MEDS: PANTOPRAZOLE 40 MG TABLET PO SCH ×2 (07:52→18:18)
[2020-08-18] MEDS: GABAPENTIN 100 MG CAPSULE PO SCH ×3 (08:10→21:51)
[2020-08-18] MEDS: SERTRALINE 50 MG TABLET PO SCH (08:10)
[2020-08-18] MEDS: FOLIC ACID 1 MG TABLET PO SCH (08:10)
[2020-08-18] MEDS: ISOSORBIDE MONONITRATE 30 MG TABLET PO SCH (08:11)
[2020-08-18] MEDS: ZINC OXIDE PASTE 113 GM TUBE TOP SCH ×2 (08:12→21:52)
[2020-08-18] MEDS: LACTATED RINGERS 1,000 ML IV SCH (08:53)
[2020-08-18] MEDS: NORTRIPTYLINE 25 MG CAPSULE PO SCH (21:51)
[2020-08-18] MEDS: DOCUSATE SODIUM 100 MG CAPSULE PO PRN (21:51)
[2020-08-18] MEDS: DONEPEZIL 10 MG TABLET PO SCH (21:51)
[2020-08-18] MEDS: SIMVASTATIN 10 MG TABLET PO SCH (21:52)
[2020-08-18 23:08] LABS: Bacteria,Urine Many /HPF (Few); Bilirubin,Urine Negative (Negative); Blood, Urine Small mg/dL (Negative); Glucose,Urine (UA) Negative (Negative); Hyaline Casts,Urine 6 /LPF (0-3); Ketones,Urine Negative (Negative); Mucus,Urine Occasional /LPF (Occasional); Nitrite,Urine Positive (Negative); Protein,Urine Negative; RBC,Urine 3 /HPF (0-4); Squamous Epithelial Cell,Urine Occasional /HPF (0-10); Urine Appearance Slightly Hazy (Clear); Urine Color Yellow (Yellow); Urine Specific Gravity 1.016 (1.001-1.035); Urine Urobilinogen < 2.0 EU/DL (0.2-1.0)
[2020-08-19] MEDS: DEXT 5% NACL 0.45% KCL 20 MEQ 20 MEQ/1,000 ML BAG IV SCH (00:45)
[2020-08-19] MEDS: PANTOPRAZOLE 40 MG TABLET PO SCH (06:03)
[2020-08-19 06:40] LABS: Basophils # 0.1 10*3/uL (0.0-0.2); Basophils % 0.5 % (0.0-0.8); Eosinophils # 0.3 10*3/uL (0.0-0.87); Eosinophils % 3.7 % (0.00-10.9); Hematocrit 25.3 VOL% (35.7-47.0); Hemoglobin 7.7 GM/DL (12.0-16.0); Immature Granulocytes % 0.4 %; Immature Granulocytes Absolute 0.04 #; Lymphocytes # 1.6 10*3/uL (1.4-4.0); Lymphocytes % 17.6 % (21.3-54.2); Mean Corpuscular HGB Conc 30.4 GM/DL (32-36); Mean Corpuscular Volume 84.9 FL (87-102); Mean Platelet Volume 8.9 FL (9.6-12.0); Monocytes % 8.1 % (1.7-12.7); Neutrophils % 69.7 % (38.7-73.9); Platelet Count 425 T/CUMM (130-400); Red Blood Count 2.98 MC/CUMM (3.8-5.5); Red Cell Distribution Width 16.5 % (9.3-17.3); White Blood Count 9.2 T/CUMM (4-12)
[2020-08-19 06:56] LABS: Calcium 8.3 MG/DL (8.5-10.1); Osmolality,Calculated 275.4 MOS/KG (273-304); Potassium 3.7 MMOL/L (3.5-5.1)
[2020-08-19] MEDS: GABAPENTIN 100 MG CAPSULE PO SCH (08:38)
[2020-08-19] MEDS: FOLIC ACID 1 MG TABLET PO SCH (08:38)
[2020-08-19] MEDS: SERTRALINE 50 MG TABLET PO SCH (08:38)
[2020-08-19] MEDS: ISOSORBIDE MONONITRATE 30 MG TABLET PO SCH (10:57)
[2020-08-19] MEDS: ZINC OXIDE PASTE 113 GM TUBE TOP SCH (10:57)
[2020-08-19] MEDS: LACTATED RINGERS 1,000 ML IV SCH (11:03)
[2020-08-19 11:40] VITALS: BP 133/73
== END 2020-08-19 17:26 | disposition swing bed (61) | DRG 379 ==
LOC: N.EDINP 12:36 → N.ED 12:36 → SUATTDRO 15:21 → N.3E 16:46 → SUATTDRO 08-10 07:55
PROVIDERS: ADMIT Hospitalist; ATTEND Internal Medicine

== ENCOUNTER 2020-08-28 14:17 | Observation (INO) ==
[2020-08-28] MEDS ORDERED: SODIUM CHLORIDE 0.9% 1,000 ML IV STA (14:42)
[2020-08-28 16:10] LABS: Bilirubin,Urine Negative (Negative); Blood, Urine Small mg/dL (Negative); Glucose,Urine (UA) Negative (Negative); Hyaline Casts,Urine 10 /LPF (0-3); Ketones,Urine Negative (Negative); Mucus,Urine Occasional /LPF (Occasional); Nitrite,Urine Negative (Negative); Protein,Urine Negative; RBC,Urine 1 /HPF (0-4); Squamous Epithelial Cell,Urine Occasional /HPF (0-10); Urine Appearance Slightly Hazy (Clear); Urine Color Yellow (Yellow); Urine Specific Gravity 1.017 (1.001-1.035); Urine Urobilinogen < 2.0 EU/DL (0.2-1.0)
[2020-08-28 16:13] LABS: Basophils # 0.1 10*3/uL (0.0-0.2); Basophils % 0.5 % (0.0-0.8); Eosinophils # 0.2 10*3/uL (0.0-0.87); Eosinophils % 1.6 % (0.00-10.9); Hematocrit 32.7 VOL% (35.7-47.0); Hemoglobin 9.7 GM/DL (12.0-16.0); Immature Granulocytes % 0.8 %; Immature Granulocytes Absolute 0.08 #; Lymphocytes # 1.3 10*3/uL (1.4-4.0); Mean Corpuscular HGB Conc 29.7 GM/DL (32-36); Mean Corpuscular Volume 89.1 FL (87-102); Mean Platelet Volume 8.8 FL (9.6-12.0); Monocytes % 6.6 % (1.7-12.7); Neutrophils % 78.5 % (38.7-73.9); Platelet Count 433 T/CUMM (130-400); Red Blood Count 3.67 MC/CUMM (3.8-5.5); Red Cell Distribution Width 18.2 % (9.3-17.3); White Blood Count 10.5 T/CUMM (4-12)
[2020-08-28 16:28] LABS: Barbiturates Screen,Urine Negative (Negative); Benzodiazepines Screen,Urine Negative (Negative); Cannabinoid Screen,Urine Negative (Negative); Opiate Screen,Urine Positive (Negative); Phencyclidine Screen,Urine Negative (Negative)
[2020-08-28 16:44] LABS: Alanine Aminotransferase 15 U/L (13-56); Albumin 2.7 G/DL (3.4-5.0); Alkaline Phosphatase 143 U/L (45-117); Aspartate Amino Transferase 21 U/L (0-37); Bilirubin,Total < 0.39 MG/DL (0.2-1.0); Blood Urea Nitrogen 24 MG/DL (7-18); Calcium 8.9 MG/DL (8.5-10.1); Carbon Dioxide 24 MMOL/L (21-32); Estimated Glom Filtration Rate 48 ML/MIN; Glucose 86 MG/DL (74-106); Osmolality,Calculated 281.4 MOS/KG (273-304); Potassium 4.8 MMOL/L (3.5-5.1); Sodium 140 MMOL/L (136-145); Total Protein 8.4 G/DL (6.4-8.2)
[2020-08-28 16:45] LABS: INR 1.1; PT Patient Result 12.4 SECS (10.5-12.0); Partial Thromboplastin Time 27.3 SECS (23.9-33.8)
[2020-08-28] MEDS ORDERED: ACETAMINOPHEN 325 MG TABLET PO PRN (17:05)
[2020-08-28] MEDS ORDERED: DEXTROSE 50% 25 GM/50 ML VIAL IV PRN (17:05)
[2020-08-28] MEDS ORDERED: GLUCAGON 1 MG VIAL IM PRN (17:05)
[2020-08-28] MEDS ORDERED: ONDANSETRON 4 MG/2 ML VIAL IV PRN (17:05)
[2020-08-28] MEDS ORDERED: SODIUM CHLORIDE 0.45% 1,000 ML IV SCH (18:00)
[2020-08-28] MEDS: PANTOPRAZOLE 40 MG TABLET PO SCH (22:40)
[2020-08-28 23:01] LABS: Hematocrit 31.4 VOL% (35.7-47.0); Hemoglobin 9.6 GM/DL (12.0-16.0)
[2020-08-29 02:44] LABS: Hematocrit 31.5 VOL% (35.7-47.0); Hemoglobin 9.6 GM/DL (12.0-16.0)
[2020-08-29 03:06] LABS: Alanine Aminotransferase 14 U/L (13-56); Albumin 2.6 G/DL (3.4-5.0); Alkaline Phosphatase 141 U/L (45-117); Aspartate Amino Transferase 17 U/L (0-37); Bilirubin,Total < 0.39 MG/DL (0.2-1.0); Blood Urea Nitrogen 17 MG/DL (7-18); Calcium 9.1 MG/DL (8.5-10.1); Carbon Dioxide 29 MMOL/L (21-32); Estimated Glom Filtration Rate 80 ML/MIN; Glucose 80 MG/DL (74-106); Osmolality,Calculated 277.5 MOS/KG (273-304); Potassium 3.9 MMOL/L (3.5-5.1); Sodium 139 MMOL/L (136-145); Total Protein 8.3 G/DL (6.4-8.2)
[2020-08-29] MEDS: PANTOPRAZOLE 40 MG TABLET PO SCH (07:31)
[2020-08-29 09:45] LABS: Hematocrit 30.6 VOL% (35.7-47.0); Hemoglobin 9.5 GM/DL (12.0-16.0)
[2020-08-29 12:35] VITALS: BP 151/89
== END 2020-08-29 13:55 | disposition swing bed (61) ==
LOC: EDBD → EDUNIT# → N.EDINP 14:17 → N.ED 14:17 → N.EDINP 21:20 → N.TELES 22:20
PROVIDERS: ADMIT Internal Medicine Geriatric Medicine; ATTEND Internal Medicine Geriatric Medicine

== ENCOUNTER 2020-12-20 13:26 | Observation (INO) ==
[2020-12-20 14:44] LABS: Basophils % 0.2 % (0.0-0.8); Eosinophils # 0.1 10*3/uL (0.0-0.87); Eosinophils % 0.6 % (0.00-10.9); Hematocrit 24.4 VOL% (35.7-47.0); Hemoglobin 7.3 GM/DL (12.0-16.0); Immature Granulocytes % 0.5 %; Immature Granulocytes Absolute 0.05 #; Lymphocytes # 1.6 10*3/uL (1.4-4.0); Lymphocytes % 16.7 % (21.3-54.2); Mean Corpuscular HGB Conc 29.9 GM/DL (32-36); Monocytes % 8.2 % (1.7-12.7); Neutrophils % 73.8 % (38.7-73.9); Platelet Count 431 T/CUMM (130-400); Red Blood Count 3.09 MC/CUMM (3.8-5.5); Red Cell Distribution Width 19.1 % (9.3-17.3); White Blood Count 9.5 T/CUMM (4-12)
[2020-12-20 15:08] LABS: Albumin 1.8 G/DL (3.4-5.0); Bilirubin,Total 0.5 MG/DL (0.20-1.00); Calcium 8.5 MG/DL (8.5-10.1); Osmolality,Calculated 284.3 MOS/KG (273-304); Potassium 5.1 MMOL/L (3.5-5.1); Total Protein 7.3 G/DL (6.4-8.2)
[2020-12-20 15:47] LABS: Bacteria,Urine Many /HPF (Few); Bilirubin,Urine Negative (Negative); Blood, Urine Negative (Negative); Glucose,Urine (UA) Negative (Negative); Hyaline Casts,Urine 9 /LPF (0-3); Ketones,Urine Negative (Negative); Mucus,Urine Occasional /LPF (Occasional); Nitrite,Urine Negative (Negative); Protein,Urine Negative; Squamous Epithelial Cell,Urine Occasional /HPF (0-10); Urine Appearance Slightly Hazy (Clear); Urine Color Amber (Yellow); Urine Specific Gravity 1.019 (1.001-1.035); Urine Urobilinogen < 2.0 EU/DL (0.2-1.0)
[2020-12-20] MEDS ORDERED: GLUCAGON 1 MG VIAL IM PRN (17:09)
[2020-12-20] MEDS ORDERED: ONDANSETRON 4 MG/2 ML VIAL IV PRN (17:09)
[2020-12-20] MEDS ORDERED: DEXTROSE 50% 25 GM/50 ML VIAL IV PRN (17:09)
[2020-12-20] MEDS: SODIUM CHLORIDE 0.9% 1,000 ML IV SCH (22:29)
[2020-12-20] MEDS: ACETAMINOPHEN 325 MG TABLET PO PRN (22:35)
[2020-12-21 05:35] LABS: Basophils # 0.1 10*3/uL (0.0-0.2); Basophils % 0.6 % (0.0-0.8); Eosinophils # 0.2 10*3/uL (0.0-0.87); Eosinophils % 2.5 % (0.00-10.9); Hematocrit 21.3 VOL% (35.7-47.0); Hemoglobin 6.6 GM/DL (12.0-16.0); Immature Granulocytes % 0.4 %; Immature Granulocytes Absolute 0.03 #; Lymphocytes # 1.2 10*3/uL (1.4-4.0); Lymphocytes % 15.3 % (21.3-54.2); Mean Corpuscular Volume 78.6 FL (87-102); Mean Platelet Volume 9.1 FL (9.6-12.0); Monocytes % 8.7 % (1.7-12.7); Neutrophils % 72.5 % (38.7-73.9); Platelet Count 397 T/CUMM (130-400); Red Blood Count 2.71 MC/CUMM (3.8-5.5); Red Cell Distribution Width 18.7 % (9.3-17.3); White Blood Count 8.1 T/CUMM (4-12)
[2020-12-21 06:03] LABS: Calcium 8.2 MG/DL (8.5-10.1); Potassium 3.7 MMOL/L (3.5-5.1)
[2020-12-21] MEDS ORDERED: SODIUM CHLORIDE 0.9% 1,000 ML IV PRN (06:42)
[2020-12-21 07:47] LABS: Basophils % 0.4 % (0.0-0.8); Eosinophils # 0.2 10*3/uL (0.0-0.87); Hematocrit 23.4 VOL% (35.7-47.0); Hemoglobin 7.2 GM/DL (12.0-16.0); Immature Granulocytes % 0.8 %; Immature Granulocytes Absolute 0.06 #; Lymphocytes # 1.3 10*3/uL (1.4-4.0); Lymphocytes % 17.2 % (21.3-54.2); Mean Corpuscular HGB Conc 30.8 GM/DL (32-36); Mean Platelet Volume 8.8 FL (9.6-12.0); Monocytes % 7.8 % (1.7-12.7); Neutrophils % 70.8 % (38.7-73.9); Platelet Count 413 T/CUMM (130-400); Red Cell Distribution Width 18.8 % (9.3-17.3); White Blood Count 7.6 T/CUMM (4-12)
[2020-12-21 08:21] LABS: Folate 20.56 NG/ML (5.38-24.0); Vitamin B12 726 PG/ML (211-911)
[2020-12-21 08:47] LABS: Sedimentation Rate-Westergren 133 MM/HR (0-30)
[2020-12-21] MEDS: ACETAMINOPHEN 325 MG TABLET PO PRN (09:08)
[2020-12-21] MEDS: PANTOPRAZOLE 40 MG TABLET PO SCH (09:08)
[2020-12-21] MEDS: SODIUM CHLORIDE 0.9% 1,000 ML IV SCH (09:08)
[2020-12-22 08:47] LABS: Basophils % 0.5 % (0.0-0.8); Eosinophils # 0.1 10*3/uL (0.0-0.87); Eosinophils % 1.2 % (0.00-10.9); Hematocrit 37.7 VOL% (35.7-47.0); Hemoglobin 11.8 GM/DL (12.0-16.0); Immature Granulocytes % 0.4 %; Immature Granulocytes Absolute 0.03 #; Lymphocytes # 1.1 10*3/uL (1.4-4.0); Lymphocytes % 13.3 % (21.3-54.2); Mean Corpuscular HGB Conc 31.3 GM/DL (32-36); Mean Corpuscular Volume 79.2 FL (87-102); Mean Platelet Volume 8.7 FL (9.6-12.0); Monocytes % 7.8 % (1.7-12.7); Neutrophils % 76.8 % (38.7-73.9); Platelet Count 375 T/CUMM (130-400); Red Blood Count 4.76 MC/CUMM (3.8-5.5); Red Cell Distribution Width 18.5 % (9.3-17.3); White Blood Count 8.2 T/CUMM (4-12)
[2020-12-22 09:04] LABS: Calcium 8.6 MG/DL (8.5-10.1); Potassium 3.6 MMOL/L (3.5-5.1)
[2020-12-22] MEDS: PANTOPRAZOLE 40 MG TABLET PO SCH (09:32)
[2020-12-22] MEDS ORDERED: MAGNESIUM SULF RIDER 4 GM/100 ML PREMIX IV PRN (11:31)
[2020-12-22] MEDS ORDERED: MAGNESIUM SULF RIDER 2 GM/50 ML PREMIX IV PRN (11:31)
[2020-12-23] MEDS: SODIUM CHLORIDE 0.9% 1,000 ML IV SCH (08:25)
[2020-12-23] MEDS: PANTOPRAZOLE 40 MG TABLET PO SCH (09:04)
[2020-12-23 12:03] VITALS: BP 128/77
[2020-12-24 11:36] LABS: Hemoglobin A1 (Alkaline) 98.5 % (96.5-98.5); Hemoglobin A2 (Alkaline) 1.5 % (1.5-3.5)
== END 2020-12-23 13:11 | disposition home health service (06) ==
LOC: N.EDINP 13:26 → N.ED 13:26 → SUATTDRO 17:09 → N.5E 18:37
PROVIDERS: ADMIT Internal Medicine; ATTEND Internal Medicine

== ENCOUNTER 2022-02-23 19:18 | Inpatient (IN) ==
[2022-02-23 21:03] LABS: Basophils % 0.3 % (0.0-0.8); Eosinophils % 0.2 % (0.00-10.9); Hematocrit 32.7 VOL% (35.7-47.0); Hemoglobin 10.2 GM/DL (12.0-16.0); Immature Granulocytes % 1.4 %; Immature Granulocytes Absolute 0.13 #; Lymphocytes # 0.8 10*3/uL (1.4-4.0); Lymphocytes % 9.1 % (21.3-54.2); Mean Corpuscular HGB Conc 31.2 GM/DL (32-36); Mean Corpuscular Volume 83.6 FL (87-102); Mean Platelet Volume 8.8 FL (9.6-12.0); Monocytes # 0.4 10*3/uL (0.11-0.8); Monocytes % 4.7 % (1.7-12.7); Neutrophils % 84.3 % (38.7-73.9); Platelet Count 373 T/CUMM (130-400); Red Blood Count 3.91 MC/CUMM (3.8-5.5); Red Cell Distribution Width 18.9 % (9.3-17.3); White Blood Count 9.2 T/CUMM (4-12)
[2022-02-23 21:11] LABS: INR 1.1; PT Patient Result 12.3 SECS (10.1-12.1)
[2022-02-23 21:23] LABS: Bilirubin,Urine Negative (Negative); Blood, Urine Negative (Negative); Glucose,Urine (UA) Negative (Negative); Ketones,Urine Negative (Negative); Nitrite,Urine Negative (Negative); Protein,Urine Negative (Negative); Urine Appearance Clear (Clear); Urine Color Yellow (Yellow); Urine Specific Gravity 1.025 (1.001-1.035)
[2022-02-23 21:25] LABS: Alanine Aminotransferase 22 U/L (13-56); Albumin 2.4 G/DL (3.4-5.0); Alkaline Phosphatase 174 U/L (45-117); Aspartate Amino Transferase 30 U/L (0-37); Bilirubin,Total < 0.39 MG/DL (0.20-1.00); Blood Urea Nitrogen 20 MG/DL (7-18); Calcium 8.8 MG/DL (8.5-10.1); Carbon Dioxide 28 MMOL/L (21-32); Chloride 109 MMOL/L (98-107); Glucose 118 MG/DL (74-106); Potassium 3.9 MMOL/L (3.5-5.1); Sodium 143 MMOL/L (136-145); Total Protein 7.9 G/DL (6.4-8.2)
[2022-02-23 21:26] LABS: Bacteria,Urine Occasional /HPF (Few); Mucus,Urine Occasional /LPF (Occasional); RBC,Urine 4 /HPF (0-4); Squamous Epithelial Cell,Urine Occasional /HPF (0-10)
[2022-02-23] MEDS ORDERED: AZITHROMYCIN INJ 500 MG in SODIUM CHLORIDE 0.9% 250 ML IV STA (21:29)
[2022-02-23] MEDS ORDERED: cefTRIAXone 1,000 MG in SODIUM CHLORIDE 0.9% 100 ML IV STA (21:30)
[2022-02-23] MEDS ORDERED: NICOTINE 21 MG/24 HR PATCH TRANSDERM PRN (23:12)
[2022-02-23] MEDS ORDERED: ONDANSETRON 4 MG/2 ML VIAL IV PRN (23:12)
[2022-02-23] MEDS ORDERED: diphenhydrAMINE CAP 25 MG CAPSULE PO PRN (23:12)
[2022-02-23] MEDS ORDERED: hydrALAZINE 20 MG/1 ML VIAL IV PRN (23:12)
[2022-02-23] MEDS ORDERED: ACETAMINOPHEN 325 MG TABLET PO PRN (23:12)
[2022-02-23] MEDS ORDERED: ZALEPLON 5 MG CAPSULE PO PRN (23:12)
[2022-02-23] MEDS ORDERED: MORPHINE 2 MG/1 ML SYRINGE IV PRN (23:12)
[2022-02-23] MEDS ORDERED: guaiFENesin/DM ER 600-30 MG TABLET PO PRN (23:12)
[2022-02-23] MEDS: ALBUTEROL/IPRATROPIUM 3 ML NEB RESP TX SCH (23:50)
[2022-02-24 06:32] LABS: Basophils % 0.2 % (0.0-0.8); Hematocrit 30.3 VOL% (35.7-47.0); Hemoglobin 9.6 GM/DL (12.0-16.0); Immature Granulocytes % 0.4 %; Immature Granulocytes Absolute 0.06 #; Lymphocytes # 1.3 10*3/uL (1.4-4.0); Lymphocytes % 8.9 % (21.3-54.2); Mean Corpuscular HGB Conc 31.7 GM/DL (32-36); Mean Corpuscular Volume 83.5 FL (87-102); Monocytes # 0.6 10*3/uL (0.11-0.8); Monocytes % 4.2 % (1.7-12.7); Neutrophils % 86.3 % (38.7-73.9); Platelet Count 364 T/CUMM (130-400); Red Blood Count 3.63 MC/CUMM (3.8-5.5); Red Cell Distribution Width 18.9 % (9.3-17.3); White Blood Count 14.6 T/CUMM (4-12)
[2022-02-24 07:01] LABS: Calcium 8.9 MG/DL (8.5-10.1); Osmolality,Calculated 283.1 MOS/KG (273-304); Potassium 3.4 MMOL/L (3.5-5.1)
[2022-02-24] MEDS: PANTOPRAZOLE 40 MG TABLET PO SCH (09:14)
[2022-02-24] MEDS: LEVOFLOXACIN INJ 750 MG/150 ML PREMIX IV SCH (09:14)
[2022-02-24] MEDS: ALBUTEROL/IPRATROPIUM 3 ML NEB RESP TX SCH ×3 (09:21→19:25)
[2022-02-24] MEDS ORDERED: VANCOMYCIN INJ 750 MG in SODIUM CHLORIDE 0.9% 250 ML IV SCH (11:00)
[2022-02-24] MEDS: ENOXAPARIN 30 MG/0.3 ML SYRINGE SUBCUT SCH (16:34)
[2022-02-24] MEDS: SODIUM CHLORIDE 0.9% 1,000 ML IV SCH (16:34)
[2022-02-24] MEDS: SIMVASTATIN 10 MG TABLET PO SCH (21:26)
[2022-02-25] MEDS: ALBUTEROL/IPRATROPIUM 3 ML NEB RESP TX SCH ×4 (00:20→20:44)
[2022-02-25 04:51] LABS: Basophils % 0.4 % (0.0-0.8); Eosinophils % 0.3 % (0.00-10.9); Hematocrit 28.9 VOL% (35.7-47.0); Hemoglobin 9.2 GM/DL (12.0-16.0); Immature Granulocytes % 0.5 %; Immature Granulocytes Absolute 0.05 #; Lymphocytes # 1.6 10*3/uL (1.4-4.0); Lymphocytes % 17.6 % (21.3-54.2); Mean Corpuscular HGB Conc 31.8 GM/DL (32-36); Mean Corpuscular Volume 82.1 FL (87-102); Mean Platelet Volume 9.1 FL (9.6-12.0); Monocytes # 0.5 10*3/uL (0.11-0.8); Monocytes % 4.9 % (1.7-12.7); Neutrophils % 76.3 % (38.7-73.9); Platelet Count 373 T/CUMM (130-400); Red Blood Count 3.52 MC/CUMM (3.8-5.5); Red Cell Distribution Width 18.5 % (9.3-17.3); White Blood Count 9.2 T/CUMM (4-12)
[2022-02-25 05:22] LABS: Calcium 8.9 MG/DL (8.5-10.1); Osmolality,Calculated 273.7 MOS/KG (273-304); Potassium 3.3 MMOL/L (3.5-5.1)
[2022-02-25] MEDS: LEVOFLOXACIN INJ 750 MG/150 ML PREMIX IV SCH (10:42)
[2022-02-25] MEDS: SERTRALINE 50 MG TABLET PEG SCH (10:43)
[2022-02-25] MEDS: PANTOPRAZOLE 40 MG TABLET PO SCH (10:43)
[2022-02-25] MEDS: ENOXAPARIN 30 MG/0.3 ML SYRINGE SUBCUT SCH (17:33)
[2022-02-25] MEDS ORDERED: DOXYCYCLINE MONOHYDRATE SUSP 5 MG/ML 60 ML/BOTTLE PO SCH (21:00)
[2022-02-25] MEDS: cefTRIAXone 1,000 MG in SODIUM CHLORIDE 0.9% 100 ML IV SCH (21:36)
[2022-02-25] MEDS: SIMVASTATIN 10 MG TABLET PO SCH (21:36)
[2022-02-26] MEDS: ALBUTEROL/IPRATROPIUM 3 ML NEB RESP TX SCH ×4 (02:32→19:20)
[2022-02-26] MEDS: SODIUM CHLORIDE 0.9% 1,000 ML IV SCH (05:52)
[2022-02-26] MEDS ORDERED: PANTOPRAZOLE 40 MG VIAL IV SCH (09:00)
[2022-02-26] MEDS: SERTRALINE 50 MG TABLET PEG SCH (09:16)
[2022-02-26] MEDS: DOXYCYCLINE HYCLATE INJ 100 MG in SODIUM CHLORIDE 0.9% 100 ML IV SCH ×2 (10:55→22:55)
[2022-02-26] MEDS: ENOXAPARIN 30 MG/0.3 ML SYRINGE SUBCUT SCH (15:34)
[2022-02-26] MEDS: PANTOPRAZOLE 40 MG VIAL IV SCH (21:24)
[2022-02-26] MEDS: cefTRIAXone 1,000 MG in SODIUM CHLORIDE 0.9% 100 ML IV SCH (21:25)
[2022-02-26] MEDS: SIMVASTATIN 10 MG TABLET PO SCH (21:29)
[2022-02-26] MEDS: ZINC OXIDE PASTE 113 GM TUBE TOP SCH (21:37)
[2022-02-27] MEDS: ALBUTEROL/IPRATROPIUM 3 ML NEB RESP TX SCH ×4 (00:10→20:46)
[2022-02-27 05:04] LABS: Basophils % 0.5 % (0.0-0.8); Eosinophils % 0.3 % (0.00-10.9); Hematocrit 30.4 VOL% (35.7-47.0); Hemoglobin 9.6 GM/DL (12.0-16.0); Immature Granulocytes % 0.3 %; Immature Granulocytes Absolute 0.02 #; Lymphocytes # 1.4 10*3/uL (1.4-4.0); Lymphocytes % 18.1 % (21.3-54.2); Mean Corpuscular HGB Conc 31.6 GM/DL (32-36); Mean Corpuscular Volume 82.4 FL (87-102); Mean Platelet Volume 9.2 FL (9.6-12.0); Monocytes # 0.7 10*3/uL (0.11-0.8); Monocytes % 8.5 % (1.7-12.7); Neutrophils % 72.3 % (38.7-73.9); Platelet Count 406 T/CUMM (130-400); Red Blood Count 3.69 MC/CUMM (3.8-5.5); Red Cell Distribution Width 18.1 % (9.3-17.3); White Blood Count 7.6 T/CUMM (4-12)
[2022-02-27 05:20] LABS: Calcium 8.6 MG/DL (8.5-10.1); Osmolality,Calculated 280.1 MOS/KG (273-304)
[2022-02-27 05:28] LABS: Potassium 2.4 MMOL/L (3.5-5.1)
[2022-02-27] MEDS: POTASSIUM CHLORIDE RIDER 10 MEQ/100 ML PREMIX IV PRN ×7 (06:26→23:44)
[2022-02-27] MEDS ORDERED: DEXTROSE 5% 1,000 ML IV SCH (08:00)
[2022-02-27] MEDS ORDERED: DEXTROSE 10% 250 ML BAG IV ONE (08:00)
[2022-02-27] MEDS: PANTOPRAZOLE 40 MG VIAL IV SCH ×2 (08:51→20:30)
[2022-02-27] MEDS: SERTRALINE 50 MG TABLET PEG SCH (08:52)
[2022-02-27] MEDS: ZINC OXIDE PASTE 113 GM TUBE TOP SCH ×2 (08:52→20:30)
[2022-02-27] MEDS: DOXYCYCLINE HYCLATE INJ 100 MG in SODIUM CHLORIDE 0.9% 100 ML IV SCH ×2 (12:00→23:44)
[2022-02-27] MEDS: FAT EMULSION 20% 250 ML IV SCH (15:17)
[2022-02-27] MEDS: MULTIVITAMIN INJ 10 ML in AMINO ACIDS/DEXT/LYTES 4.25-5% 1,000 ML IV SCH (16:21)
[2022-02-27] MEDS: cefTRIAXone 1,000 MG in SODIUM CHLORIDE 0.9% 100 ML IV SCH (20:30)
[2022-02-27] MEDS: SODIUM CHLORIDE 0.9% 1,000 ML IV SCH (22:27)
[2022-02-27] MEDS: SIMVASTATIN 10 MG TABLET PO SCH (22:27)
[2022-02-28] MEDS: POTASSIUM CHLORIDE RIDER 10 MEQ/100 ML PREMIX IV PRN ×3 (01:09→03:14)
[2022-02-28] MEDS: ALBUTEROL/IPRATROPIUM 3 ML NEB RESP TX SCH ×4 (01:28→19:46)
[2022-02-28 05:21] LABS: Phosphorous 2.2 MG/DL (2.5-4.9)
[2022-02-28] MEDS: SERTRALINE 50 MG TABLET PEG SCH (09:06)
[2022-02-28] MEDS: ZINC OXIDE PASTE 113 GM TUBE TOP SCH ×2 (09:06→20:58)
[2022-02-28] MEDS: PANTOPRAZOLE 40 MG VIAL IV SCH ×2 (09:06→20:55)
[2022-02-28] MEDS: DOXYCYCLINE HYCLATE INJ 100 MG in SODIUM CHLORIDE 0.9% 100 ML IV SCH ×2 (11:15→23:34)
[2022-02-28] MEDS ORDERED: MAGNESIUM SULF RIDER 2 GM/50 ML PREMIX IV ONE (13:36)
[2022-02-28] MEDS: FAT EMULSION 20% 250 ML IV SCH (14:39)
[2022-02-28] MEDS ORDERED: SODIUM PHOSPHATE INJ 30 MMOL in SODIUM CHLORIDE 0.9% 250 ML IV ONE (16:00)
[2022-02-28] MEDS: MULTIVITAMIN INJ 10 ML in AMINO ACIDS/DEXT/LYTES 4.25-5% 1,000 ML IV SCH (16:37)
[2022-02-28] MEDS: cefTRIAXone 1,000 MG in SODIUM CHLORIDE 0.9% 100 ML IV SCH (20:55)
[2022-02-28] MEDS: SIMVASTATIN 10 MG TABLET PO SCH (23:15)
[2022-03-01] MEDS: ALBUTEROL/IPRATROPIUM 3 ML NEB RESP TX SCH ×4 (00:28→19:00)
[2022-03-01 05:04] LABS: Basophils % 0.2 % (0.0-0.8); Eosinophils # 0.1 10*3/uL (0.0-0.87); Hematocrit 28.6 VOL% (35.7-47.0); Hemoglobin 9.1 GM/DL (12.0-16.0); Immature Granulocytes % 0.5 %; Immature Granulocytes Absolute 0.04 #; Lymphocytes # 1.3 10*3/uL (1.4-4.0); Lymphocytes % 15.5 % (21.3-54.2); Mean Corpuscular HGB Conc 31.8 GM/DL (32-36); Mean Corpuscular Volume 79.9 FL (87-102); Mean Platelet Volume 8.8 FL (9.6-12.0); Monocytes # 0.5 10*3/uL (0.11-0.8); Neutrophils % 76.8 % (38.7-73.9); Platelet Count 348 T/CUMM (130-400); Red Blood Count 3.58 MC/CUMM (3.8-5.5); Red Cell Distribution Width 18.2 % (9.3-17.3); White Blood Count 8.1 T/CUMM (4-12)
[2022-03-01 05:16] LABS: Calcium 8.1 MG/DL (8.5-10.1); Phosphorous 3.5 MG/DL (2.5-4.9); Potassium 2.9 MMOL/L (3.5-5.1)
[2022-03-01] MEDS: POTASSIUM CHLORIDE RIDER 10 MEQ/100 ML PREMIX IV PRN ×2 (06:43→10:31)
[2022-03-01] MEDS: PANTOPRAZOLE 40 MG VIAL IV SCH ×2 (09:02→21:16)
[2022-03-01] MEDS: SERTRALINE 50 MG TABLET PEG SCH (09:23)
[2022-03-01] MEDS: DOXYCYCLINE HYCLATE INJ 100 MG in SODIUM CHLORIDE 0.9% 100 ML IV SCH ×2 (11:03→23:49)
[2022-03-01] MEDS: ZINC OXIDE PASTE 113 GM TUBE TOP SCH ×2 (12:05→21:15)
[2022-03-01] MEDS: POTASSIUM CHLORIDE RIDER 10 MEQ/100 ML PREMIX IV SCH ×6 (13:56→21:15)
[2022-03-01] MEDS: FAT EMULSION 20% 250 ML IV SCH (15:54)
[2022-03-01] MEDS: MULTIVITAMIN INJ 10 ML in AMINO ACIDS/DEXT/LYTES 4.25-5% 1,000 ML IV SCH (18:03)
[2022-03-01] MEDS: SIMVASTATIN 10 MG TABLET PO SCH (21:14)
[2022-03-01] MEDS: cefTRIAXone 1,000 MG in SODIUM CHLORIDE 0.9% 100 ML IV SCH (21:16)
[2022-03-02] MEDS: ALBUTEROL/IPRATROPIUM 3 ML NEB RESP TX SCH ×4 (00:12→19:28)
[2022-03-02 04:40] LABS: Basophils % 0.3 % (0.0-0.8); Eosinophils # 0.2 10*3/uL (0.0-0.87); Eosinophils % 1.8 % (0.00-10.9); Hematocrit 29.2 VOL% (35.7-47.0); Hemoglobin 9.5 GM/DL (12.0-16.0); Immature Granulocytes % 0.2 %; Immature Granulocytes Absolute 0.02 #; Lymphocytes # 1.8 10*3/uL (1.4-4.0); Lymphocytes % 19.7 % (21.3-54.2); Mean Corpuscular HGB Conc 32.5 GM/DL (32-36); Mean Corpuscular Volume 80.4 FL (87-102); Mean Platelet Volume 9.1 FL (9.6-12.0); Monocytes # 0.5 10*3/uL (0.11-0.8); Monocytes % 5.3 % (1.7-12.7); Neutrophils % 72.7 % (38.7-73.9); Platelet Count 323 T/CUMM (130-400); Red Blood Count 3.63 MC/CUMM (3.8-5.5); Red Cell Distribution Width 18.5 % (9.3-17.3); White Blood Count 8.9 T/CUMM (4-12)
[2022-03-02 04:57] LABS: Calcium 8.3 MG/DL (8.5-10.1); Osmolality,Calculated 281.1 MOS/KG (273-304); Potassium 3.3 MMOL/L (3.5-5.1)
[2022-03-02] MEDS ORDERED: MAGNESIUM SULF RIDER 2 GM/50 ML PREMIX IV ONE (09:19)
[2022-03-02] MEDS: PANTOPRAZOLE 40 MG VIAL IV SCH ×2 (09:37→21:14)
[2022-03-02] MEDS: DOXYCYCLINE HYCLATE INJ 100 MG in SODIUM CHLORIDE 0.9% 100 ML IV SCH (10:33)
[2022-03-02] MEDS: ZINC OXIDE PASTE 113 GM TUBE TOP SCH ×2 (10:34→21:14)
[2022-03-02] MEDS: SERTRALINE 50 MG TABLET PEG SCH (10:35)
[2022-03-02] MEDS: POTASSIUM CHLORIDE RIDER 10 MEQ/100 ML PREMIX IV SCH ×4 (12:55→18:20)
[2022-03-02] MEDS: FAT EMULSION 20% 250 ML IV SCH (16:16)
[2022-03-02] MEDS: MULTIVITAMIN INJ 10 ML in AMINO ACIDS/DEXT/LYTES 4.25-5% 1,000 ML IV SCH (18:03)
[2022-03-02] MEDS: cefTRIAXone 1,000 MG in SODIUM CHLORIDE 0.9% 100 ML IV SCH (21:14)
[2022-03-02] MEDS: SIMVASTATIN 10 MG TABLET PO SCH (21:15)
[2022-03-03] MEDS: ALBUTEROL/IPRATROPIUM 3 ML NEB RESP TX SCH ×4 (00:53→19:00)
[2022-03-03] MEDS: DOXYCYCLINE HYCLATE INJ 100 MG in SODIUM CHLORIDE 0.9% 100 ML IV SCH ×3 (01:30→23:35)
[2022-03-03 05:06] LABS: Basophils % 0.4 % (0.0-0.8); Eosinophils # 0.2 10*3/uL (0.0-0.87); Eosinophils % 2.2 % (0.00-10.9); Hematocrit 28.8 VOL% (35.7-47.0); Hemoglobin 9.3 GM/DL (12.0-16.0); Immature Granulocytes % 0.4 %; Immature Granulocytes Absolute 0.03 #; Lymphocytes # 1.2 10*3/uL (1.4-4.0); Lymphocytes % 16.5 % (21.3-54.2); Mean Corpuscular HGB Conc 32.3 GM/DL (32-36); Mean Corpuscular Volume 80.2 FL (87-102); Mean Platelet Volume 9.2 FL (9.6-12.0); Monocytes # 0.5 10*3/uL (0.11-0.8); Monocytes % 6.7 % (1.7-12.7); Neutrophils % 73.8 % (38.7-73.9); Platelet Count 308 T/CUMM (130-400); Red Blood Count 3.59 MC/CUMM (3.8-5.5); Red Cell Distribution Width 18.7 % (9.3-17.3); White Blood Count 7.2 T/CUMM (4-12)
[2022-03-03 05:26] LABS: Calcium 8.5 MG/DL (8.5-10.1); Osmolality,Calculated 280.3 MOS/KG (273-304); Potassium 3.8 MMOL/L (3.5-5.1)
[2022-03-03] MEDS: POTASSIUM CHLORIDE RIDER 10 MEQ/100 ML PREMIX IV PRN (06:55)
[2022-03-03] MEDS ORDERED: LIDOCAINE 2% 5 ML VIAL ONE (09:08)
[2022-03-03] MEDS ORDERED: propofoL 200 MG/20 ML VIAL IV ONE (09:08)
[2022-03-03] MEDS ORDERED: ceFAZolin 1,000 MG VIAL ONE (09:26)
[2022-03-03] MEDS: DEXTROSE 5% 1,000 ML IV SCH (09:40)
[2022-03-03] MEDS: SERTRALINE 50 MG TABLET PEG SCH (10:43)
[2022-03-03] MEDS: ZINC OXIDE PASTE 113 GM TUBE TOP SCH ×2 (10:43→21:34)
[2022-03-03] MEDS: PANTOPRAZOLE 40 MG VIAL IV SCH ×2 (10:43→21:33)
[2022-03-03] MEDS: DEXTROSE 5% NACL 0.45% 1,000 ML IV SCH (12:34)
[2022-03-03] MEDS: FAT EMULSION 20% 250 ML IV SCH (13:27)
[2022-03-03] MEDS: MULTIVITAMIN INJ 10 ML in AMINO ACIDS/DEXT/LYTES 4.25-5% 1,000 ML IV SCH (17:32)
[2022-03-03] MEDS: SIMVASTATIN 10 MG TABLET PO SCH (21:33)
[2022-03-03] MEDS: cefTRIAXone 1,000 MG in SODIUM CHLORIDE 0.9% 100 ML IV SCH (21:33)
[2022-03-04] MEDS: ALBUTEROL/IPRATROPIUM 3 ML NEB RESP TX SCH ×3 (00:16→14:17)
[2022-03-04 05:17] LABS: Phosphorous 2.6 MG/DL (2.5-4.9)
[2022-03-04] MEDS: OMEPRAZOLE ODT 20 MG TABLET PER TUBE SCH ×2 (09:25→21:20)
[2022-03-04] MEDS: ZINC OXIDE PASTE 113 GM TUBE TOP SCH ×2 (09:25→21:20)
[2022-03-04] MEDS: SERTRALINE 50 MG TABLET PEG SCH (09:25)
[2022-03-04] MEDS ORDERED: MAGNESIUM SULF RIDER 1 GM/100 ML PREMIX IV ONE (09:44)
[2022-03-04] MEDS: DEXTROSE 5% 1,000 ML IV SCH (10:08)
[2022-03-04] MEDS: DEXTROSE 5% NACL 0.45% 1,000 ML IV SCH (10:38)
[2022-03-04] MEDS: DOXYCYCLINE HYCLATE INJ 100 MG in SODIUM CHLORIDE 0.9% 100 ML IV SCH ×2 (11:45→21:20)
[2022-03-04] MEDS: SIMVASTATIN 10 MG TABLET PO SCH (21:20)
[2022-03-04] MEDS: cefTRIAXone 1,000 MG in SODIUM CHLORIDE 0.9% 100 ML IV SCH (21:20)
[2022-03-04] MEDS: levETIRAcetam LIQUID 100 MG/ML 30 ML/BOTTLE PEG SCH (21:20)
[2022-03-05 04:29] LABS: Basophils % 0.4 % (0.0-0.8); Eosinophils # 0.1 10*3/uL (0.0-0.87); Eosinophils % 0.9 % (0.00-10.9); Hematocrit 28.2 VOL% (35.7-47.0); Hemoglobin 9.3 GM/DL (12.0-16.0); Immature Granulocytes % 0.4 %; Immature Granulocytes Absolute 0.03 #; Lymphocytes # 1.5 10*3/uL (1.4-4.0); Lymphocytes % 18.1 % (21.3-54.2); Mean Corpuscular Volume 80.1 FL (87-102); Mean Platelet Volume 8.9 FL (9.6-12.0); Monocytes # 0.6 10*3/uL (0.11-0.8); Monocytes % 7.5 % (1.7-12.7); Neutrophils % 72.7 % (38.7-73.9); Platelet Count 299 T/CUMM (130-400); Red Blood Count 3.52 MC/CUMM (3.8-5.5); Red Cell Distribution Width 18.5 % (9.3-17.3)
[2022-03-05 05:06] LABS: Alanine Aminotransferase < 9 U/L (13-56); Alkaline Phosphatase 132 U/L (45-117); Aspartate Amino Transferase 12 U/L (0-37); Bilirubin,Total < 0.39 MG/DL (0.20-1.00); Blood Urea Nitrogen 13 MG/DL (7-18); Calcium 8.9 MG/DL (8.5-10.1); Carbon Dioxide 27 MMOL/L (21-32); Chloride 110 MMOL/L (98-107); Glucose 111 MG/DL (74-106); Osmolality,Calculated 283.1 MOS/KG (273-304); Sodium 142 MMOL/L (136-145); Total Protein 7.2 G/DL (6.4-8.2)
[2022-03-05] MEDS: ALBUTEROL/IPRATROPIUM 3 ML NEB RESP TX SCH ×2 (07:30→14:42)
[2022-03-05] MEDS: SERTRALINE 50 MG TABLET PEG SCH (09:14)
[2022-03-05] MEDS: POTASSIUM CHLORIDE RIDER 10 MEQ/100 ML PREMIX IV SCH ×4 (09:14→14:45)
[2022-03-05] MEDS: levETIRAcetam LIQUID 100 MG/ML 30 ML/BOTTLE PEG SCH (09:14)
[2022-03-05] MEDS: ZINC OXIDE PASTE 113 GM TUBE TOP SCH (09:15)
[2022-03-05] MEDS: OMEPRAZOLE ODT 20 MG TABLET PER TUBE SCH (09:15)
[2022-03-05] MEDS: DOXYCYCLINE HYCLATE INJ 100 MG in SODIUM CHLORIDE 0.9% 100 ML IV SCH (14:45)
[2022-03-05 17:22] VITALS: BP 113/62
== END 2022-03-05 18:38 | DRG 193 ==
LOC: N.ED 19:18 → SUATTDRO 23:12 → N.EDINP 23:12 → N.TELEN 02-24 16:44
PROVIDERS: ADMIT Emergency Medicine; ATTEND Internal Medicine
PROC: EGDWPEG (ICD-10-PCS; 2022-03-03 07:20)